=== PATIENT | female | born 1975 | race Caucasian/White ===

== ENCOUNTER 2017-06-05 21:31 | Emergency (ER) | payer BC ==
[2017-06-05 21:38] VITALS: BMI 49.9
--- NOTE | 2017-06-05 23:19 | DR.GENAD ---
HPI - HPI Comment HPI Comment: TREATED FOR PNEUMONIA BUT PAIN PERSISTS. NO FEVER OR DYSURIA. PAST 2 DAYS, PAIN WORSE. - Complaint/Symptoms Chief Complaint Doctors Comments: ABDOMINAL PAIN ON AND OFF FOR 2 MONTHS WITH COUGH. Chief Complaint:: PT C/O ABD PAIN THAT "HURST SO BAD IT MAKES ME COUGH MY GUTS UP" FEVER, COUGH, AND CONGESTION. 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 negative: Chills, Fever Eyes: No Symptoms Reported. negative: Eye Pain, Discharge ENTM: No Symptoms Reported, Nose Congestion. negative: Ear Pain, Nose Discharge , Throat Pain Respiratoy: Productive Cough, Short of Breath, Wheezing Cardiovascular: Chest Pain (LOWER CHEST PAIN.) Gastrointestinal/Abdominal: Abdominal Pain Genitourinary: No Symptoms Reported. negative: Dysuria, Frequency, Hematuria Neurological: No Symptoms Reported, Headache, Weakness, Dizziness Musculoskeletal: Muscle Pain Integumentary: No Symptoms Reported Hematologic/Lymphatic: No Symptoms Reported Endocrine: No Symptoms Reported All Other Systems: Reviewed and Negative PE - Vital Signs Vitals: Temperature 98.4 F Pulse Rate [Left Radial] 100 Pulse Rate 106 Respiratory Rate 18 Blood Pressure [Left Arm] 149/83 Blood Pressure 164/81 O2 Sat by Pulse Oximetry 98 - General Limitations: No Limitations General Appearance: Alert - Head Head Exam: Normal Inspection - Eyes Eye exam: Normal Appearance - ENT ENT Exam: Normal External Ear Exam External Ear Exam: Normal External Inspection TM/Canal Exam: Bilateral Normal Nose Exam: Normal Nose Exam Mouth Exam: Normal Inspection Throat Exam: Normal Inspection - Neck Neck Exam: Normal Inspection - Chest Chest Inspection: Symmetric Chest Wall Rise - Respiratory Respiratory Exam: Normal Lung Sounds Bilat Respiratory Exam: Bilateral Rhonchi, Lower Rhonchi - Cardiovascular Cardiovascular Exam: Regular Rate, Normal Rhythm, Normal Heart Sounds - Abdominal Exam Abdominal Exam: Normal Bowel Sounds, Soft, Tenderness Abdominal Tenderness: Diffuse, Moderate - Extremities Extremities Exam: Normal Inspection - Back Back Exam: Normal Inspection - Neurologic Neurological Exam: Alert, Oriented X3 - Psychiatric Psychiatric Exam: Normal Affect, Normal Mood - Skin Skin Exam: Normal Color [facility] - Additional Information Additional Information Obtained From: Family - Differential Diagnosis Differential Diagnosis: ABDOMINAL PAIN, UTI, BOWEL OBSTRUCTION, DIVERTICULITIS, KIDNEY STONE, PYELO Course - Treatment Treatment: SEE ORDERS. - Education/Counseling Education/Counseling: Patient, Family, Education Educated On: Diagnosis, Needs for Follow Up ROR - Labs Reviewed Laboratory Results Reviewed?: Yes Result Diagrams: 06/05/17 23:40 06/05/17 23:40 Laboratory: WBC 7.6 X10^3/uL (3.6-10.0) 06/05/17 23:40 RBC 5.22 X10^6/uL (3.5-5.4) 06/05/17 23:40 Hgb 12.4 g/dL (12.0-16.0) 06/05/17 23:40 Hct 37.4 % (36.0-47.0) 06/05/17 23:40 MCV 71.7 fL (80.0-100.0) L 06/05/17 23:40 MCH 23.7 pg (27.0-34.0) L 06/05/17 23:40 MCHC 33.0 g/dL (33.0-35.0) 06/05/17 23:40 RDW 17.6 % (11.6-16.5) H 06/05/17 23:40 Plt Count 283 X10^3/uL (150.0-450.0) 06/05/17 23:40 Plt Count Comment Adequate (ADEQUATE) 06/05/17 23:40 MPV 8.9 fL (7.4-11.0) 06/05/17 23:40 Neut % 70.5 % (42.0-75.0) 06/05/17 23:40 Lymph % 15.1 % (21.0-51.0) L 06/05/17 23:40 [place] % 12.0 % (0.0-13.0) 06/05/17 23:40 Eos % 1.6 % (0.9-2.9) 06/05/17 23:40 Baso % 0.8 % (0.2-1.0) 06/05/17 23:40 Neut # 5.4 x10^3/uL (2.2-4.8) H 06/05/17 23:40 Lymph # 1.1 X10^3/uL (1.3-2.9) L 06/05/17 23:40 [place] # 0.9 x10^3/uL (0.3-0.8) H 06/05/17 23:40 Eos # 0.1 x10^3/uL (0.0-0.2) 06/05/17 23:40 Baso # 0.1 X10^3/uL (0.0-0.1) 06/05/17 23:40 Absolute Nucleated RBC 0.1 /100WBC 06/05/17 23:40 Plt Morphology Comment Normal (NORMAL) 06/05/17 23:40 RBC Morphology Abnormal (NORMAL) A 06/05/17 23:40 Hypochromasia 1+ A 06/05/17 23:40 Microcytosis 1+ A 06/05/17 23:40 Sodium 137 mmol/L (136-145) 06/05/17 23:40 Corrected Sodium 138 mmol/L (136-145) 06/05/17 23:40 Potassium 3.7 mmol/L (3.5-5.1) 06/05/17 23:40 Chloride 101 mmol/L (98-107) 06/05/17 23:40 Carbon Dioxide 26.4 mmol/L (21-32) 06/05/17 23:40 BUN 12 mg/dL (7-18) 06/05/17 23:40 Creatinine 0.87 mg/dL (0.55-1.02) 06/05/17 23:40 Est GFR (MDRD) Af Amer > 60 (>60) 06/05/17 23:40 Est GFR (MDRD) Non-Af > 60 (>60) 06/05/17 23:40 Glucose 137 mg/dL (65-99) H 06/05/17 23:40 Calcium 9.1 mg/dL (8.5-10.1) 06/05/17 23:40 Corrected Calcium TNP 06/05/17 23:40 Total Bilirubin 0.30 mg/dL (0.2-1.0) 06/05/17 23:40 AST 11 Units/L (15-37) L 06/05/17 23:40 ALT 19 Units/L (12-78) 06/05/17 23:40 Alkaline Phosphatase 69 Units/L (46-116) 06/05/17 23:40 Total Protein 7.8 g/dL (6.4-8.2) 06/05/17 23:40 Albumin 3.7 g/dL (3.4-5.0) 06/05/17 23:40 Globulin 4.1 g/dL (2.5-4.5) 06/05/17 23:40 Albumin/Globulin Ratio 0.9 Ratio (1.1-2.1) L 06/05/17 23:40 Amylase 25 Units/L (25-115) 06/05/17 23:40 Lipase 133 Units/L (73-393) 06/05/17 23:40 Specimen Type Clean catch urine 06/05/17 23:37 Urine Color Yellow (YELLOW) 06/05/17 23:37 Urine Appearance Clear (CLEAR) 06/05/17 23:37 Urine pH 5.0 (5.0 - 8.0) 06/05/17 23:37 Ur Specific [place] 1.015 (1.000-1.030) 06/05/17 23:37 Urine Protein Negative (NEGATIVE) 06/05/17 23:37 Urine Glucose (UA) Negative (NEGATIVE) 06/05/17 23:37 Urine Ketones Negative (NEGATIVE) 06/05/17 23:37 Urine Occult Blood Negative (NEGATIVE) 06/05/17 23:37 Urine Nitrite Negative (NEGATIVE) 06/05/17 23:37 Urine Bilirubin Negative (NEGATIVE) 06/05/17 23:37 Urine Urobilinogen Normal (NORMAL) 06/05/17 23:37 Ur Leukocyte Esterase Negative (NEGATIVE) 06/05/17 23:37 Urine RBC 0-3 /HPF (NEGATIVE) 06/05/17 23:37 Urine WBC 0-3 /HPF (NEGATIVE) 06/05/17 23:37 Ur Squamous Epith Cells Rare /HPF (NEGATIVE) 06/05/17 23:37 Urine Bacteria Negative /HPF (NEGATIVE) 06/05/17 23:37 Ur Culture Indicated? No/not indicated 06/05/17 23:37 - XRAY XRAY Interpreted by: Radiologist XRAY Findings: REPORT DISCUSS WITH PATIENT AND FAMILY. - Diagnosis Discharge Problem: Abdominal pain Qualifiers: Abdominal location: generalized Qualified Code(s): R10.84 - Generalized abdominal pain Pneumonia Qualifiers: Pneumonia type: due to unspecified organism Laterality: left Lung location: lower lobe of lung Qualified Code(s): J18.1 - Lobar pneumonia, unspecified organism - Discharge Plan Disposition: HOME, SELF-CARE Condition: Stable Prescriptions: Benzonatate [TESSALON PERLES *] 200 mg PO TID PRN #30 cap PRN Reason: Cough Doxycycline Hyclate 100 mg PO BID #20 tablet.dr - Follow ups/Referrals Follow ups/Referrals: JASON MURCIA [Primary Care Provider] - 3 days - Instructions Instructions: Abdominal Pain, Adult, [id number], Pneumonitis Additional Instructions: RETURN TO ED IF WORSE.
[2017-06-05 23:56] LABS: BILIRUBIN,URINE NEGATIVE (NEGATIVE); BLOOD/HEMOGLOBIN,URINE NEGATIVE (NEGATIVE); GLUCOSE, URINE NEGATIVE (NEGATIVE); KETONES,URINE NEGATIVE (NEGATIVE); LEUKOCYTE ESTERASE ,URINE NEGATIVE (NEGATIVE); NITRITES,URINE NEGATIVE (NEGATIVE); PROTEIN,URINE NEGATIVE (NEGATIVE); UROBILINOGEN,URINE NORMAL (NORMAL)
[2017-06-05 23:58] LABS: BASOPHILS # (AUTO) 0.1 X10^3/uL (0.0-0.1); BASOPHILS % (AUTO) 0.8 % (0.2-1.0); EOSINOPHILS # (AUTO) 0.1 x10^3/uL (0.0-0.2); EOSINOPHILS % (AUTO) 1.6 % (0.9-2.9); HEMATOCRIT 37.4 % (36.0-47.0); HEMOGLOBIN 12.4 g/dL (12.0-16.0); LYMPHOCYTES # (AUTO) 1.1 X10^3/uL (1.3-2.9); LYMPHOCYTES % (AUTO) 15.1 % (21.0-51.0); MEAN CORPUSCULAR HEMOGLOBIN 23.7 pg (27.0-34.0); MEAN CORPUSCULAR VOLUME 71.7 fL (80.0-100.0); MEAN PLATELET VOLUME 8.9 fL (7.4-11.0); MONOCYTES # (AUTO) 0.9 x10^3/uL (0.3-0.8); NEUTROPHILS # (AUTO) 5.4 x10^3/uL (2.2-4.8); NEUTROPHILS % (AUTO) 70.5 % (42.0-75.0); PLATELET COUNT 283 X10^3/uL (150.0-450.0); RED BLOOD COUNT 5.22 X10^6/uL (3.5-5.4); RED CELL DISTRIBUTION WIDTH 17.6 % (11.6-16.5); WHITE BLOOD COUNT 7.6 X10^3/uL (3.6-10.0)
[2017-06-06 00:04] LABS: ALANINE AMINOTRANSFERASE 19 Units/L (12-78); ALBUMIN 3.7 g/dL (3.4-5.0); ALKALINE PHOSPHATASE 69 Units/L (46-116); AMYLASE 25 Units/L (25-115); ASPARTATE AMINO TRANSFERASE 11 Units/L (15-37); BLOOD UREA NITROGEN 12 mg/dL (7-18); CALCIUM 9.1 mg/dL (8.5-10.1); CARBON DIOXIDE 26.4 mmol/L (21-32); CHLORIDE 101 mmol/L (98-107); COR NA(FOR HYPERGLY) 138 mmol/L (136-145); CREATININE 0.87 mg/dL (0.55-1.02); LIPASE 133 Units/L (73-393); SODIUM 137 mmol/L (136-145); TOTAL PROTEIN 7.8 g/dL (6.4-8.2); eGFR BLACK RACES > 60 (>60); eGFR NON BLACK RACES > 60 (>60)
[2017-06-06 00:16] LABS: APPEARANCE,URINE CLEAR (CLEAR); BACTERIA,URINE NEGATIVE /HPF (NEGATIVE); COLOR,URINE YELLOW (YELLOW); RBC,URINE 0-3 /HPF (NEGATIVE); SQUAMOUS EPITHELIAL CELL,UR RARE /HPF (NEGATIVE)
[2017-06-06 00:19] LABS: HYPOCHROMASIA 1+; MICROCYTOSIS 1+; PLATELET MORPHOLOGY COMMENT NORMAL (NORMAL)
--- NOTE | 2017-06-06 00:24 | CT ---
CT abdomen and pelvis without contrast Indication: Abdominal pain Comparison: None available Technique: Multiple axial images of the abdomen and pelvis were obtained from the lung bases to the pubic symphy sis without the administration of IV contrast. Findings: Ground-glass opacities within the left lower lobe suspicious for developing infectious/inflammatory i nfiltrates. The liver, bile ducts and spleen are unremarkable given their noncontrast appearance. Bhavani or cholecystectomy is noted. The pancreas and adrenal glands are normal. Neither kidney demonstrates evidence of nephrolithiasis, hydronephrosis or mass. Upper GI tract demonstrates no evidence of mass or obstruction. Urinary bladder is normal. No pelvic or adnexal mass. There is a small, likely physio logic right ovarian cyst. The rectum and colon are normal. Prior appendectomy is noted. No pelvic germán e fluid or adenopathy. Review of bone windows demonstrates no acute osseous abnormality. Impression: 1.Ground-glass opacities within the left lower lobe most consistent with acute infectious/inflammator y infiltrates. 2.No acute inflammatory process identified within the abdomen or pelvis given limitations of a noncon trast examination. Reported By:
[2017-06-06 01:06] VITALS: BP 149/83
== END 2017-06-06 01:05 | disposition home or self-care (01) ==
LOC: ER 21:44
DX: R10.84 Generalized abdominal pain (principal); J18.1 Lobar pneumonia, unspecified organism
CPT/HCPCS: 36415; 74176; 80053; 81001; 82150; 83690; 85025; 99282; 99283